=== PATIENT | male | born 1960 | race African-American/Black ===

== ENCOUNTER 2018-02-04 15:26 | Emergency (ER) | payer BC, MEDICAID ==
[~2018-02-04] VITALS: Ht 180.3 cm; Wt 95.1 kg
[~2018-02-04 15:26] MED LIST: IBUP-1623; OXYC-307; PANCREAZE 10,51 EACH
[2018-02-04 15:30] VITALS: BP 126/90
[2018-02-04 16:06] LABS: BASOPHILS # (AUTO) 0.02 x10^3/uL (0-0.1); BASOPHILS % (AUTO) 0 % (0-1); EOSINOPHILS # (AUTO) 0.01 x10^3/uL (0-0.4); EOSINOPHILS % (AUTO) 0 % (1-7); LYMPHOCYTES # (AUTO) 1.77 x10^3/uL (1-3.4); LYMPHOCYTES % (AUTO) 12 % (22-44); MD NO; MEAN CORPUSCULAR HEMOGLOBIN 30.3 pg (27.5-34.5); MEAN CORPUSCULAR HGB CONC 33.7 g/dL (33.2-36.2); MEAN CORPUSCULAR VOLUME 90.1 fL (81-97); MEAN PLATELET VOLUME 8.6 fL (7.4-10.4); MONOCYTES # (AUTO) 1.22 x10^3/uL (0.2-0.8); MONOCYTES % (AUTO) 8 % (2-9); NEUTROPHILS # (AUTO) 11.86 x10^3/uL (1.8-6.8); NEUTROPHILS % (AUTO) 80 % (42-75); PLATELET COUNT 254 x10^3/uL (130-400); RED BLOOD COUNT 5.21 x10^6/uL (4.38-5.82)
[2018-02-04 16:12] LABS: INTERNATIONAL NORMALIZED RATIO 1.14 (0.93-1.1)
[2018-02-04 16:16] LABS: ALBUMIN 3.7 g/dL (3.4-5.0); ANION GAP 5 mmol/L (5-15); CALCIUM 8.8 mg/dL (8.5-10.1); CHLORIDE 103 mmol/L (98-107)
[2018-02-04 16:19] LABS: ALANINE AMINOTRANSFERASE 53 U/L (12-78); ALKALINE PHOSPHATASE 74 U/L (45-117); BILIRUBIN,TOTAL 1.1 mg/dL (0.2-1.0); CREATININE 1.31 mg/dL (0.7-1.3); TOTAL PROTEIN 8.1 g/dL (6.4-8.2)
[2018-02-04 16:24] LABS: MICROSCOPIC AUTO
[2018-02-04 16:25] LABS: CULTURE INDICATED? NO
[2018-02-04] MEDS ORDERED: MORPHINE SULFATE 4 MG/ML, 1ML IVPush PRN (16:30)
[2018-02-04] MEDS ORDERED: MORPHINE SULFATE 4 MG/ML, 1ML ONE (16:51)
== END 2018-02-04 17:37 | disposition home or self-care (01) ==
LOC: ED 16:35
DX: R10.12 Left upper quadrant pain (principal); R10.32 Left lower quadrant pain; R11.0 Nausea; Z87.19 Personal history of other diseases of the digestive system
CPT/HCPCS: 36415; 74021; 80053; 81001; 83605; 83690; 85025; 85610; 93005; 96374